=== PATIENT | female | born 1995 | race Caucasian/White ===

== ENCOUNTER 2018-08-24 10:37 | Outpatient (CLI) | END 2018-08-24 13:07 | disposition home or self-care (01) ==

== ENCOUNTER 2018-08-24 13:13 | Emergency (ER) | END 2018-08-24 15:52 | disposition left against medical advice (07) ==

== ENCOUNTER 2018-10-12 18:34 | Outpatient (CLI) | END 2018-10-12 20:36 | disposition home or self-care (01) ==

== ENCOUNTER 2018-10-26 07:18 | Inpatient (IN) | END 2018-10-28 16:08 | disposition home or self-care (01) | DRG 807 ==